=== PATIENT | female | born 2000 | race Two or more races ===

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

== ENCOUNTER 2022-02-07 11:02 | Emergency (ER) | payer OTHER ==
[2022-02-07 11:10] VITALS: BMI 23.3
[2022-02-07 11:36] VITALS: TEMP 98.2
[2022-02-07] MEDS ORDERED: ONDANSETRON 4 MG/2 ML VIAL IVPUSH ONE (13:24)
[2022-02-07] MEDS ORDERED: SODIUM CHLORIDE 0.9% 500 ML INFUS.BAG IV ONE (13:24)
[2022-02-07] MEDS ORDERED: ACETAMINOPHEN 1000 MG/100 ML BAG IVPB ONE (13:25)
[2022-02-07] MEDS ORDERED: ACETAMINOPHEN INJECTION 100 ML IVPB ONE (14:03)
[2022-02-07] MEDS ORDERED: ONDANSETRON 4 MG/2 ML VIAL ONE (14:03)
[2022-02-07 14:06] LABS: PH,URINE 7.5 (5.0-8.0); URINE APPEARANCE CLEAR; URINE BILIRUBIN NEGATIVE (NEGATIVE); URINE COLOR YELLOW; URINE GLUCOSE (UA) NEGATIVE (NEGATIVE); URINE KETONE 2+ (NEGATIVE); URINE LEUK ESTERASE NEGATIVE (NEGATIVE); URINE NITRITE NEGATIVE (NEGATIVE); URINE PROTEIN NEGATIVE (NEGATIVE)
[2022-02-07 14:26] LABS: BASO % 0.5 % (0-2.0); EOS % 0.2 % (0-4.5); LYMPH % 18.5 % (8-40); MCH 33.3 pg (25.7-33.7); MCHC 34.2 g/dl (32.0-36.0); MEAN CELL VOLUME 97.3 fl (80-96); MEAN PLT VOLUME 9.8 fl (7.5-11.1); MONO % 6.5 % (3.8-10.2); NEUT % 74.3 % (42.8-82.8); PLATELET COUNT 181 10^3/uL (134-434); RDW 12.1 % (11.6-15.6); WHITE BLOOD COUNT 6.6 K/mm3 (4.0-10.0)
[2022-02-07 14:47] LABS: ALBUMIN 4.5 g/dl (3.4-5.0); CALCIUM 9.4 mg/dL (8.5-10.1)
[2022-02-07 14:48] LABS: BLOOD UREA NITROGEN 11.4 mg/dL (7-18)
[2022-02-07 14:50] LABS: CREATININE 0.6 mg/dL (0.55-1.3)
[2022-02-07 14:52] LABS: BILIRUBIN,TOTAL 0.6 mg/dL (0.2-1); TOT PROT 7.8 g/dl (6.4-8.2)
[2022-02-07 19:41] VITALS: BP 108/80; PULSE 66
== END 2022-02-07 19:41 | disposition home or self-care (01) ==
LOC: JER 11:02
PROC: 3E033GC Introduction of Other Therapeutic Substance into Peripheral Vein, Percutaneous Approach (ICD-10-PCS; principal; 2022-02-07)
DX: N83.291 Other ovarian cyst, right side (principal)
CPT/HCPCS: 36415; 74177-TC; 76830-TC; 80053; 81003; 83690; 84703; 85025; 87070; 87077; 87086; 87186; 87205; 99285-25; Q9967

== ENCOUNTER 2022-09-04 13:16 | Emergency (ER) | payer OTHER ==
[2022-09-04 13:22] VITALS: BP 133/79; PULSE 94; RESP 18; TEMP 100.2; BMI 24.3
[2022-09-04 15:06] LABS: THROAT:GRP A STREP DETECTED (NOTDETECTED)
== END 2022-09-04 17:18 | disposition home or self-care (01) ==
LOC: JER 13:16
DX: J02.0 Streptococcal pharyngitis (principal)
CPT/HCPCS: 0241U-QW; 36415; 84703; 87651; 99283-25